=== PATIENT | male | born 1955 | race Two or more races ===

== ENCOUNTER 2022-05-06 15:21 | Outpatient (REF) | payer MEDICAID, SELFPAY ==
--- NOTE | ~2022-05-06 | XR_ITS ---
EXAMINATION: XR SHOULDER, LEFT CLINICAL INFORMATION: Left shoulder pain. COMPARISON: None. TECHNIQUE: AP external rotation, Grashey, scapular Y, and axillary views of the left shoulder. FINDINGS: There is small bone fragment along the inferior glenoid process likely avulsion injury. The glenohumeral joint space is maintained normal. Minimal loss of left AC joint space with inferior spurring is noted. No acute fracture, dislocation or subluxation. The soft tissues are normal. XR/XR shoulder LT min 2V IMPRESSION: 1. Small bone fragment along the inferior glenoid process likely old avulsion injury. 2. Mild degenerative changes left AC joint. No visible acute fracture or dislocation seen.
== END 2022-05-06 15:22 | disposition home or self-care (01) ==
LOC: HO.LAB 15:21
PROVIDERS: Visit Provider Student in an Organized Health Care Education/Training Program
DX: M25.512 Pain in left shoulder (principal)
CPT/HCPCS: 73030

== ENCOUNTER → 2022-07-18 10:16 | Outpatient (BNVA) | payer MEDICAID, SELFPAY | PROVIDERS: PCP Student in an Organized Health Care Education/Training Program; Visit Provider Nurse Practitioner Psychiatric/Mental Health | DX: Z51.81 Encounter for therapeutic drug level monitoring (principal); F11.20 Opioid dependence, uncomplicated | CPT/HCPCS: 99202 ==

== ENCOUNTER → 2022-08-17 13:23 | Outpatient (BNVA) | payer MEDICARE, MEDICAID, SELFPAY | PROVIDERS: PCP Student in an Organized Health Care Education/Training Program; Visit Provider Nurse Practitioner Psychiatric/Mental Health | DX: Z51.81 Encounter for therapeutic drug level monitoring (principal); F11.20 Opioid dependence, uncomplicated | CPT/HCPCS: 80305; 99212 ==

== ENCOUNTER 2022-08-24 09:14 | Outpatient (REF) | payer MEDICARE, MEDICAID, SELFPAY ==
--- NOTE | ~2022-08-24 | US_ITS ---
EXAMINATION: US ABDOMEN COMPLETE CLINICAL INFORMATION: History of hepatitis C, now treated. Monitor liver. COMPARISON: None available. TECHNIQUE: Real-time imaging of the abdominal viscera. FINDINGS: PANCREAS: The pancreas appears unremarkable, without masses or ductal dilatation, with the exception of the tail which is obscured by bowel gas. ABDOMINAL AORTA: The mid abdominal aorta could not be seen but otherwise no aneurysm is present. INFERIOR VENA CAVA: Visualized portions are normal. LIVER: Liver echogenicity was heterogeneous with a slightly nodular border suggesting cirrhosis. The liver is normal in size. No focal hepatic lesion. There is no intrahepatic biliary duct dilatation seen. GALLBLADDER: Surgically absent. COMMON BILE DUCT: Normal in caliber measuring 0.4 cm in diameter. RIGHT KIDNEY: Normal. No hydronephrosis. No renal calculi or focal parenchymal lesions. The kidney measures 11.3 cm in maximum dimension. LEFT KIDNEY: No hydronephrosis. A probable vascular calcification is seen at the lower pole. No definite renal calculi or focal parenchymal lesions. The kidney measures 11.4 cm in maximum dimension. SPLEEN: Normal. The spleen measures 9.5 cm in maximum dimension. FREE FLUID: None. US/US abdomen complete IMPRESSION: Heterogeneous slightly nodular liver suggesting cirrhosis. No focal mass is seen.
== END 2022-08-24 09:15 | disposition home or self-care (01) ==
LOC: HO.US 09:14
PROVIDERS: Visit Provider Student in an Organized Health Care Education/Training Program
DX: Z86.19 Personal history of other infectious and parasitic diseases (principal)
CPT/HCPCS: 76700

== ENCOUNTER 2022-10-17 08:56 | Outpatient (REF) | payer MEDICARE, MEDICAID, SELFPAY ==
[2022-10-17 12:17] LABS: INTERNATIONAL NORM RATIO 1.1 (0.9-1.1); Prothrombin Time 13.6 SEC (11.1-13.3)
[2022-10-17 12:53] LABS: Alanine Aminotransferase 14 U/L (0-40); Albumin Level 3.8 g/dL (3.5-5.0); Alkaline Phosphatase 91 U/L (39-117); Anion Gap 14 (12-20); Aspartate Amino Transferase 16 U/L (5-37); Bilirubin Total 0.6 mg/dL (0.0-1.0); Blood Urea Nitrogen 13 mg/dL (9-16); Calcium 9.7 mg/dL (8.4-10.2); Carbon Dioxide 28 mmol/L (22-29); Chloride 99 mmol/L (96-108); Estimated Glomerular Filt Rate > 60; Glucose Random 184 mg/dL (60-115); Potassium 4.6 mmol/L (3.3-5.1); Sodium 136 mmol/L (135-145); Total Protein 8.4 g/dL (6.5-8.0)
[2022-10-17 12:56] LABS: Free T4 (Free Thyroxine) 1.04 ng/dL (0.71-1.85); Thyroid Stimulating Hormone 2.41 uIU/mL (0.32-4.0)
[2022-10-17 13:19] LABS: Vitamin B12 428 pg/mL (200-900)
[2022-10-18 05:06] LABS: HIV AB/AG Nonreactive (Nonreactive); HIV Num 1 0.06 S/CO (0.00-0.99)
== END 2022-10-17 08:57 | disposition home or self-care (01) ==
LOC: HO.HHCL 08:56
PROVIDERS: Visit Provider Student in an Organized Health Care Education/Training Program
DX: Z00.00 Encounter for general adult medical examination without abnormal findings (principal); Z11.4 Encounter for screening for human immunodeficiency virus [HIV]; K74.69 Other cirrhosis of liver
CPT/HCPCS: 80053; 82607; 82746; 84439; 84443; 85610; 87389